=== PATIENT | female | born 1990 | race Caucasian/White ===

== ENCOUNTER 2019-03-18 21:10 | Emergency (ER) | payer SELFPAY ==
[~2019-03-18] VITALS: Ht 180.3 cm; Wt 84.0 kg
[2019-03-18 21:40] VITALS: BP 135/90
--- NOTE | 2019-03-18 22:06 | PHYS DOC ---
Past Medical History Past Medical History: Other Additional Past Medical Histor: factor 5 (LIZZ BERNARDO APRN) Past Surgical History: Other Additional Past Surgical Histo: knee, cyst removal (LIZZ BERNARDO APRN) Smoking Status: Current Every Day Smoker Alcohol Use: None (LIZZ BERNARDO APRN) Attending Signature I have participated in the care of this patient and I have reviewed and agree with all pertinent clinical information above including history, exam, and recommendations. (GIFTY WILLIAMSON MD) Adult General Chief Complaint Chief Complaint: HEADACHE HPI HPI Patient is a 29 year old female who presents with head trauma that occurred around 6 PM. The patient states she has been having associated symptoms of light sensitivity, noise sensitivity, nausea, and vomiting. The patient had a negative loc. The patient rates her pain as 10/10 in severity and has not had medication prior to arrival. Complete ROS were reviewed and found to be within normal limits, except as documented in the HPI (LIZZ BERNARDO APRN) Physical Exam Physical Exam Constitutional: Well developed, well nourished, no acute distress, non-toxic appearance. [] HENT: Normocephalic, atraumatic, bilateral external ears normal, oropharynx moist, no oral exudates, nose normal. [] Eyes: PERRLA, EOMI, conjunctiva normal, no discharge. [] Back: No tenderness, no CVA tenderness. [] Extremities: No tenderness, no cyanosis, no clubbing, ROM intact, no edema. [] Neurologic: Alert and oriented X 3, normal motor function, normal sensory function, no focal deficits noted. [] Psychologic: Affect normal, judgement normal, mood normal. [] (LIZZ BERNARDO APRN) Current Patient Data Vital Signs Vital Signs Date Time Temp Pulse Resp B/P (MAP) Pulse Ox O2 Delivery O2 Flow Rate FiO2 03/18/19 21:40 97.8 94 16 135/90 (105) 99 Room Air 97.8 (GFITY WILLIAMSON MD) EKG EKG [] (LIZZ BERNARDO APRN) Radiology/Procedures Radiology/Procedures [] (LIZZ BERNARDO APRN) Course & Med Decision Making Course & Med Decision Making Pertinent Labs and Imaging studies reviewed. (See chart for details) The patient appears to have a concussion. Discussed concussion treatment and precautions. A medical screening exam was performed on this patient and the patient does not appear to be having a medical emergency. Her symptoms are not of sufficient severity and within reasonable medical probability it is unlikely the absence of immediate medical attention would result in placing the health of the individual (or, with respect to a woman, the health of the woman or her unborn child) in serious jeopardy, serious impairment to bodily functions, or serious dysfunction of any bodily organ or part. If , the patient is not in labor (LIZZ BERNARDO APRN) Dragon Disclaimer Dragon Disclaimer This electronic medical record was generated, in whole or in part, using a voice recognition dictation system. (LIZZ BERNARDO APRN) Departure Departure Impression: Primary Impression: Concussion Additional Impression: Encounter for medical screening examination Disposition: HOME, SELF-CARE Condition: STABLE Referrals: NO PCP (PCP) Patient Instructions: Concussion and Brain Injury Additional Instructions: Thank you for visiting [facility]. We appreciate you trusting us with your care. If any additional problems come up don't hesitate to return to visit us. Please follow up with your primary care provider so they can plan additional care if needed and know about the problem that you had. If symptoms worsen come back to the Emergency Department. Any concerning symptoms that start such as chest pain, shortness of air, weakness or numbness on one side of the body, running high fevers or any other concerning symptoms return to the ER. PATIENT TAKE-HOME INSTRUCTIONS ([facility]) INFORMATION FOR ADULTS You have been examined for a head injury and possible concussion. Take time off from work or school for days or until you and your health child care provider think you are able to return to your usual routine. Further instructions from your health child care provider: When should I return to the hospital emergency department? Sometimes serious problems develop after a head injury. Return immediately to the emergency department if you experience any of the following symptoms: ? Repeated vomiting ? Headache that gets worse and does not go away ? Loss of consciousness or unable to stay awake during times you would normally be awake ? Getting more confused, restless, or agitated ? Convulsions or seizures ? Difficulty walking or difficulty with balance ? Weakness or numbness ? Difficulty with your vision Most of all, if you have any symptom that concerns you, your family members, or friends, dont delay, see a doctor right away. Q&A. Some questions and answers about brain injuries Q. What is a concussion? A. A concussion is a type of traumatic brain injury (TBI). It is caused by a bump, blow, or jolt to the head or body that causes the head and brain to move quickly back and forth. Some of the ways you can get a concussion are when you hit your head during a fall, car crash, or sports injury. Health family day care provider sometime refer to concussions as mild? brain injuries because they are usually not life-threatening. Even so, their effects can be serious. Q. What should I expect once I'm home from the hospital? A. Most people with a concussion recover quickly and fully. During recovery, it is important to know that many people have a range of symptoms. Some symptoms may appear right away, while others may not be noticed for hours or even days after the injury. You may not realize you have problems until you try to do your usual activities again. Below is a list of some of the symptoms you may have: Thinking/ Remembering Difficulty thinking clearly Feeling slowed down Difficulty concentrating Difficulty remembering new information Physical Headache Nausea or vomiting (early on) Sensitivity to noise or light Feeling tired, having no energy Fuzzy or blurry vision Dizziness Balance problems Emotional/ Mood Irritability Sadness More emotional Nervousness or anxiety Sleep Sleeping more than usual Sleeping less than usual Trouble falling asleep These postconcussive? symptoms can be part of the normal healing process and are generally not signs of permanent damage or serious health problems. Most symptoms go away over time without any treatment. It is easy to become upset or afraid if you dont know what to expect or if you are having problems. Keep talking with your doctor and others about how you are feeling. Tell your health child care provider if you do not think you are getting better. Q. What can I do to feel better? A. Getting plenty of rest and sleep helps the brain to heal. Do not try to do too much too fast. As you start to feel better, you can slowly and gradually return to your usual routine. Here are some other tips to help you get better: Avoid activities that are physically demanding (e.g., sports, heavy housecleaning, exercising) or require a lot of thinking or concentration (e.g., working on the computer, playing video games). Ignoring your symptoms and toughing it out? often makes symptoms worse. Ask your health child care provider when you can safely drive a car, ride a bike, or operate heavy equipment. Do not drink alcohol. Q. What if I don't feel better after a week? A. If you do not feel back to normal within one week, see a health child care provider who has experience treating brain injuries. Q. Should I tell my work about my injury? A. If your injury was work-related, make sure you report it right away to your employer and your workers compensation office. Q. When can I return to sports and recreational activities? A. Do not return to sports and recreational activities before talking to your health child care provider. A repeat concussion that occurs before the brain has fully healed can be very dangerous and may slow your recovery or increase the chance for long-term problems. Q. How can I avoid a concussion in the future? A. There are many ways to minimize the risk of a concussion and other injuries: Wear a seat belt and use a safety seat for children. Wear a helmet that fits properly when biking, riding a motorcycle, skating, skiing, horseback riding, or playing contact sports. Prevent falls in the home by: Using grab bars in the bathroom and handrails by stairs. Placing non-slip mats in the bathtub and on floors. Removing trip hazards in the house. Improving lighting. Installing safety bedolla by stairs and safety guards by windows to protect young children in your home. For more information about concussion, please visit www.cdc.gov/Concussion. This fact sheet is part of the Centers for Disease Control and Preventions (CDC) Heads Up? series of publications and is based on the 2008 Clinical Policy: Neuroimaging and Decisionmaking in Adult Mild Traumatic Brain Injury in the Acute Setting, jointly produced by CDC and ACEP Problem Qualifiers Primary Impression: Concussion Encounter type: initial encounter Loss of consciousness presence/duration: without LOC Qualified Codes: S06.0X0A - Concussion without loss of consciousness, initial encounter LIZZ BERNARDO APRN Mar 18, 2019 22:06 GIFTY WILLIAMSON MD Mar 18, 2019 22:14
== END 2019-03-18 22:09 | disposition home or self-care (01) ==
LOC: ER 21:10
DX: S06.0X0A Concussion without loss of consciousness, initial encounter (principal); R11.2 Nausea with vomiting, unspecified; H53.71 Glare sensitivity; F17.200 Nicotine dependence, unspecified, uncomplicated; Z98.890 Other specified postprocedural states; X58.XXXA Exposure to other specified factors, initial encounter; Y93.89 Activity, other specified; Y92.89 Other specified places as the place of occurrence of the external cause; Y99.8 Other external cause status
CPT/HCPCS: 99281

== ENCOUNTER 2020-03-10 12:28 | Emergency (ER) | payer SELFPAY ==
[~2020-03-10] VITALS: Ht 180.3 cm; Wt 78.6 kg
[2020-03-10] MEDS ORDERED: diphenhydrAMINE 50 MG/ML VIAL IVP ONE (13:15)
[2020-03-10] MEDS ORDERED: KETOROLAC 15 MG/ML VIAL. IVP ONE (13:15)
[2020-03-10] MEDS ORDERED: DEXAMETHASONE SOD PHOS 20 MG/5 ML VIAL. IV ONE (13:15)
[2020-03-10] MEDS ORDERED: PROCHLORPERAZINE 10 MG/2 ML VIAL. IV ONE (13:15)
[2020-03-10 13:39] LABS: BASO # 0.1 x10^3/uL (0.0-0.2); BASO % 1 % (0-3); EOS % 0 % (0-3); HEMATOCRIT 39.9 % (36.0-47.0); HEMOGLOBIN 13.6 g/dL (12.0-15.5); LYMPH # 2.3 x10^3/uL (1.0-4.8); LYMPH % 31 % (24-48); MEAN CORPUSCULAR HEMOGLOBIN 31 pg (25-35); MEAN CORPUSCULAR HGB CONC 34 g/dL (31-37); MEAN CORPUSCULAR VOLUME 91 fL (79-100); MONO # 0.6 x10^3/uL (0.0-1.1); MONO % 7 % (0-9); NEUT # 4.5 x10^3/uL (1.8-7.7); NEUT % 61 % (31-73); PLATELET COUNT 315 x10^3/uL (140-400); RED BLOOD COUNT 4.36 x10^6/uL (3.50-5.40); RED CELL DISTRIBUTION WIDTH 13.2 % (11.5-14.5); WHITE BLOOD COUNT 7.5 x10^3/uL (4.0-11.0)
[2020-03-10 13:39] LABS: BILIRUBIN,URINE NEGATIVE (NEG); CLARITY,URINE CLOUDY; COLOR,URINE YELLOW; NITRITE,URINE NEGATIVE (NEG); PROTEIN,URINE NEGATIVE (NEG-TRACE); UROBILINOGEN,URINE 0.2 mg/dL (0.2 mg/dL)
[2020-03-10 13:46] LABS: BARBITURATES NEG (NEG); BENZODIAZEPINES POS (NEG); CANNABINOIDS NEG (NEG); COCAINE POS (NEG); METHADONE NEG (NEG); OPIATES POS (NEG); PHENCYCLIDINE NEG (NEG)
[2020-03-10 13:48] LABS: CALCIUM 9.1 mg/dL (8.5-10.1); CREATININE 0.8 mg/dL (0.6-1.0); GFR 84.8; POTASSIUM 4.2 mmol/L (3.5-5.1)
[2020-03-10 13:50] LABS: AMPHETAMINE/METHAMPHETAMINE NEG (NEG)
[2020-03-10 13:51] LABS: BACTERIA,URINE FEW /HPF (0-FEW); RBC,URINE OCC /HPF (0-2); WBC,URINE 20-40 /HPF (0-4)
[2020-03-10 13:52] LABS: TRICHOMONAS,URINE PRESENT
[2020-03-10 13:53] LABS: ALBUMIN 3.8 g/dL (3.4-5.0); ALBUMIN/GLOBULIN RATIO 0.9 (1.0-1.7); TOTAL BILIRUBIN 0.1 mg/dL (0.2-1.0); TOTAL PROTEIN 7.9 g/dL (6.4-8.2)
[2020-03-10] MEDS ORDERED: HALOPERIDOL LACTATE 5 MG/ML VIAL. IVP ONE (14:15)
[2020-03-10 14:38] VITALS: BP 125/77
[2020-03-10] MEDS ORDERED: DIPH25TA24 PO (15:34)
[2020-03-10] MEDS ORDERED: METO5TAB55 PO (15:34)
--- NOTE | 2020-03-10 15:42 | PHYS DOC ---
Past Medical History Past Medical History: Anxiety, Bipolar, Depression, Endometriosis, Other Additional Past Medical Histor: factor 5 Past Surgical History: Other Additional Past Surgical Histo: knee, cyst removal Smoking Status: Current Every Day Smoker Alcohol Use: None Social History Narrative: LAST USED 1 WEEK AGO General Adult EDM: Chief Complaint: HEADACHE HPI: HPI: 30-year-old female past medical history significant for anxiety and bipolar dep ression, presents to the ED with complaints of gradual onset frontal headache that has been intermittent, waxing waning for the past 5 days, now involves her posterior occiput. No relief with Tylenol, Sudafed and Excedrin extra strength. Patient does report some associated nasal congestion. Reports she smokes tobacco and he tried cocaine 2 weeks ago. Denies any history of head or neck trauma. No associated neurologic deficits, blurry vision, neck pain or fever. No history of IV drug use. States she feels as if her anxiety is not under control and that is why her heart rate is fast. States she was recently prescribed Valium for her anxiety by [facility] in [place] -prior to this had taken lorazepam as needed (not daily). LMP 2014 - since then on Depo-Provera injections every 3 months. Denies any family history of aneurysms or intracranial hemorrhage. Patient not on any anticoagulants. Does report she had a mild nosebleed a few days ago that resolved with pressure. Review of Systems: Review of Systems: Constitutional: Denies fever or chills. [] Eyes: Denies change in visual acuity. [] HENT: Denies nasal congestion or sore throat. [] Respiratory: Denies cough or shortness of breath. [] Cardiovascular: Denies chest pain or edema. [] GI: Denies abdominal pain, nausea, vomiting, bloody stools or diarrhea. [] : Denies dysuria or hematuria Musculoskeletal: Denies back pain or joint pain. [] Integument: Denies rash or diaphoresis Neurologic: Denies neck stiffness, focal weakness or sensory changes. [] Endocrine: Denies polyuria or polydipsia. [] Lymphatic: Denies swollen glands. [] Psychiatric: Denies depression or anxiety. [] Heart Score: Risk Factors: Risk Factors: DM, Current or recent (<one month) smoker, HTN, HLP, family history of CAD, obesity. Risk Scores: Score 0 - 3: 2.5% MACE over next 6 weeks - Discharge Home Score 4 - 6: 20.3% MACE over next 6 weeks - Admit for Clinical Observation Score 7 - 10: 72.7% MACE over next 6 weeks - Early Invasive Strategies Current Medications: Current Medications Medications (Trade) Dose Ordered Sig/Lianet Start Time Stop Time Status Last Admin Dose Admin Dexamethasone Sodium Phosphate (Decadron) 10 mg 1X ONCE 03/10/20 13:15 03/10/20 13:16 DC 03/10/20 13:30 10 MG Diphenhydramine HCl (Benadryl) 50 mg 1X ONCE 03/10/20 13:15 03/10/20 13:16 DC 03/10/20 13:33 50 MG Haloperidol Lactate (Haldol Inj) 5 mg 1X ONCE 03/10/20 14:15 03/10/20 14:16 DC 03/10/20 14:22 5 MG Ketorolac Tromethamine (Toradol 15mg Vial) 15 mg 1X ONCE 03/10/20 13:15 03/10/20 13:16 DC 03/10/20 13:39 15 MG Prochlorperazine Edisylate (Compazine) 10 mg 1X ONCE 03/10/20 13:15 03/10/20 13:16 DC 03/10/20 13:36 10 MG Allergies: Allergies: Allergies Coded Allergies Type Severity Reaction Last Updated Verified tramadol Allergy Intermediate hives 03/10/20 Yes Physical Exam: PE: Constitutional: Well developed, well nourished, no acute distress, non-toxic appearance. [] HENT: Normocephalic, atraumatic, bilateral external ears normal, Eyes: PERRLA, EOMI, conjunctiva normal, no discharge, Neck: Normal range of motion, no tenderness, supple, no nuchal rigidity or meningismus Cardiovascular: S1/2 present, regular rhythm Lungs & Thorax: Speaking in full sentences, bilateral equal chest rise, no tachypnea or increased work of breathing Abdomen: soft, no tenderness, Skin: Warm, dry, no erythema, no rash. [] Back: No tenderness, no CVA tenderness. [] Extremities: No tenderness, no cyanosis, no clubbing, ROM intact, no edema. [] Neurologic: Alert and oriented X 3, normal motor function, normal sensory function, no focal deficits noted, cn2-12 intact, FNF/TIERA wnl Psychologic: Affect normal, judgement normal, mood normal. [] Current Patient Data: Labs: Laboratory Tests Test 03/10/20 12:46 03/10/20 13:00 03/10/20 13:20 POC Urine HCG, Qualitative Hcg negative (Negative) Urine Collection Type Unknown Urine Color Yellow Urine Clarity Cloudy Urine pH 6.0 (<5.0-8.0) Urine Specific [place] 1.020 (1.000-1.030) Urine Protein Negative mg/dL (NEG-TRACE) Urine Glucose (UA) Negative mg/dL (NEG) Urine Ketones (Stick) Negative mg/dL (NEG) Urine Blood Negative (NEG) Urine Nitrite Negative (NEG) Urine Bilirubin Negative (NEG) Urine Urobilinogen Dipstick 0.2 mg/dL (0.2 mg/dL) Urine Leukocyte Esterase Large (NEG) Urine RBC Occ /HPF (0-2) Urine WBC 20-40 /HPF (0-4) Urine Squamous Epithelial Cells Many /LPF Urine Bacteria Few /HPF (0-FEW) Urine Mucus Marked /LPF Urine Trichomonas Present Urine Opiates Screen Pos (NEG) Urine Methadone Screen Neg (NEG) Urine Barbiturates Neg (NEG) Urine Phencyclidine Screen Neg (NEG) Urine Amphetamine/Methamphetamine Neg (NEG) Urine Benzodiazepines Screen Pos (NEG) Urine Cocaine Screen Pos (NEG) Urine Cannabinoids Screen Neg (NEG) Urine Ethyl Alcohol Neg (NEG) White Blood Count 7.5 x10^3/uL (4.0-11.0) Red Blood Count 4.36 x10^6/uL (3.50-5.40) Hemoglobin 13.6 g/dL (12.0-15.5) Hematocrit 39.9 % (36.0-47.0) Mean Corpuscular Volume 91 fL (79-100) Mean Corpuscular Hemoglobin 31 pg (25-35) Mean Corpuscular Hemoglobin Concent 34 g/dL (31-37) Red Cell Distribution Width 13.2 % (11.5-14.5) Platelet Count 315 x10^3/uL (140-400) Neutrophils (%) (Auto) 61 % (31-73) Lymphocytes (%) (Auto) 31 % (24-48) Monocytes (%) (Auto) 7 % (0-9) Eosinophils (%) (Auto) 0 % (0-3) Basophils (%) (Auto) 1 % (0-3) Neutrophils # (Auto) 4.5 x10^3/uL (1.8-7.7) Lymphocytes # (Auto) 2.3 x10^3/uL (1.0-4.8) Monocytes # (Auto) 0.6 x10^3/uL (0.0-1.1) Eosinophils # (Auto) 0.0 x10^3/uL (0.0-0.7) Basophils # (Auto) 0.1 x10^3/uL (0.0-0.2) Sodium Level 141 mmol/L (136-145) Potassium Level 4.2 mmol/L (3.5-5.1) Chloride Level 104 mmol/L (98-107) Carbon Dioxide Level 29 mmol/L (21-32) Anion Gap 8 (6-14) Blood Urea Nitrogen 13 mg/dL (7-20) Creatinine 0.8 mg/dL (0.6-1.0) Estimated GFR (Cockcroft-Gault) 84.8 BUN/Creatinine Ratio 16 (6-20) Glucose Level 93 mg/dL (70-99) Calcium Level 9.1 mg/dL (8.5-10.1) Total Bilirubin 0.1 mg/dL (0.2-1.0) L Aspartate Amino Transferase (AST) 8 U/L (15-37) L Alanine Aminotransferase (ALT) 16 U/L (14-59) Alkaline Phosphatase 82 U/L (46-116) Total Protein 7.9 g/dL (6.4-8.2) Albumin 3.8 g/dL (3.4-5.0) Albumin/Globulin Ratio 0.9 (1.0-1.7) L Laboratory Tests 03/10/20 13:20 Laboratory Tests 03/10/20 13:20 Vital Signs: Vital Signs Date Time Temp Pulse Resp B/P (MAP) Pulse Ox O2 Delivery O2 Flow Rate FiO2 03/10/20 14:38 100 99 03/10/20 12:36 98.0 22 140/93 (109) Room Air 98.0 EKG: EKG: [] Radiology/Procedures: Radiology/Procedures: [] Course & Med Decision Making: Course & Med Decision Making Pertinent Labs and Imaging studies reviewed. (See chart for details) On re-evaluation pt states headache is almost gone and is requesting to be discharged. Pt educated on STI/trich (asks "what's that," when informed she has trichomonas). Patient will self swab for PCR testing for GC. Was given azithro po in the ED to cover for chlamydia. Will for the health department for further blood-borne STI testing. Will prescribe Keflex and Flagyl to cover UTI, gonorrhea and trichomonas. Will discharge home with strict ED return precautions were given for worsening headache, neurologic deficits, blurry vision, fever or neck pain. Encouraged urgent outpatient follow-up with PMD and neurology as needed. Life-threatening processes were considered but are low suspicion at this time, given history, physical exam and ED workup. Pt was educated on all prescription medications and adverse effects. All patient's questions were answered and pt was stable at time of discharge. Life/limb-threatening differential includes but is not limited to, meningitis, encephalitis, intracranial hemorrhage, obstructive hydrocephaly, CVA, carbon monoxide poisoning, cerebral or cavernous venous thrombosis, hypertensive emergency, preeclampsia, giant cell arteritis, glaucoma, carotid or vertebral artery dissection, superior vena cava syndrome, infection, optic neuritis, or space-occupying lesions. I spoken with the patient and her caregivers. I explained the patient's condition, diagnoses and treatment plan based on the information available to me at this time. I have answered the patient and her caregiver's questions and addressed any concerns. The patient and her caregivers have a good understanding of patient's diagnosis, condition and treatment plan as can be expected at this point. Vital signs have been stable. Patient's condition is stable and appropriate for discharge from the emergency department. Patient will pursue further outpatient evaluation with primary care physician or other designated or consulting physician as outlined in the discharge instructions. The patient and/or caregivers are agreeable to this plan of care and follow-up instructions have been explained in detail. The patient and/or caregivers have received these instructions in written form and have expressed an understanding of the discharge instructions. The patient and/or caregivers are aware that any significant change of condition or worsening of symptoms should prompt immediate return to this or the closest emergency department or call to 911. Lawrence Disclaimer: Lawrence Disclaimer: This electronic medical record was generated, in whole or in part, using a voice recognition dictation system. Departure Departure Impression: Primary Impression: Headache Additional Impressions: Vaginal trichomoniasis UTI (urinary tract infection) Polysubstance abuse Disposition: 01 DC HOME SELF CARE/HOMELESS Condition: STABLE Referrals: NO PCP (PCP) FOLLOW UP WITH FAMILY MEDICINE: Family Medicine Address: [address] [place] [address] Patient Instructions: General Headache Without Cause, Migraine Headache, Trichomoniasis Additional Instructions: FOLLOW UP WITH NEUROLOGY: [facility] Neurology Address: [address], [address] [place] [address] EMERGENCY DEPARTMENT GENERAL DISCHARGE INSTRUCTIONS Thank you for coming to [facility] Emergency Department (ED) today and trusting us with you care. We trust that you had a positive experience in our Emergency Department. If you wish to speak to the department management, you may call the Director at [phone]. YOUR FOLLOW UP INSTRUCTIONS ARE FOLLOWS: 1. Do you have a private Doctor? If you do not have a private doctor, please ask for a resource list of physicians or clinics that may be able to assist you with follow up care. 2. The Emergency Physicain has interpreted your x-rays. The X-Ray specialist will also review them. If there is a change in the findings, you will be notified in 48 hours when at all possible. 3. A lab test or culture has been done, your results will be reviewed and you will be notified if you need a change in treatment. ADDITIONAL INSTRUCTIONS AND INFORMATION: 1. Your care today has been supervised by a physician who is specially trained in emergency care. Many problems require more than one evaluation for a complete diagnosis and treatment. We recommend that you schedule your follow up appointment as recommended to ensure complete treatment of you illness or injury. If you are unable to obtain follow up care and continue to have a problem, or if your condition worsens, we recommend that you return to the ED. 2. We are not able to safely determine your condition over the phone nor are we able to give sound medical advice over the phone. For these safety reasons, if you call for medical advice we will ask you to come to the ED for further evaluation. 3. If you have any questions regarding these discharge instructions please call the ED at [phone]. SAFETY INFORMATION: In the interest of safety, wellness, and injury prevention; we encourage you to wear your sealbelt, if you smoke; quite smoking, and we encourage family to use a protective helmet for bicycling and other sporting events that present an increased risk for head injury. IF YOUR SYMPTOMS WORSEN OR NEW SYMPTOMS DEVELOP, OR YOU HAVE CONCERNS ABOUT YOUR CONDITION; OR IF YOUR CONDITION WORSENS WHILE YOU ARE WAITING FOR YOUR FOLLOW UP APPOINTMENT; EITHER CONTACT YOUR PRIMARY CARE DOCTOR, THE PHYSICIAN WHOSE NAME AND NUMBER YOU WERE GIVEN, OR RETURN TO THE ED IMMEDIATELY. Scripts Metronidazole (FLAGYL) 500 Mg Tablet 1 TAB PO BID for 7 Days, #14 TAB Prov: NAZARIO DOMINGUEZ DO 03/10/20 Cephalexin (CEPHALEXIN) 500 Mg Capsule 2 CAP PO QID for 7 Days, #56 CAP Prov: NAZARIO DOMINGUEZ DO 03/10/20 Metoclopramide Hcl (REGLAN) 5 Mg Tablet 1-2 TAB PO QID, #20 TAB 0 Refills Prov: NAZARIO DOMINGUEZ DO 03/10/20 Diphenhydramine Hcl (DIPHENHYDRAMINE HCL) 25 Mg Tablet 1-2 TAB PO Q6-8HRS PRN for HEADACHE MDD 100mg for 30 Days, #20 TAB 0 Refills Prov: NAZARIO DOMINGUEZ DO 03/10/20 NAZARIO DOMINGUEZ DO Mar 10, 2020 15:42
[2020-03-10] MEDS ORDERED: METR500T PO (15:57)
[2020-03-10] MEDS ORDERED: CEPH500C PO (15:57)
[2020-03-10] MEDS ORDERED: AZITHROMYCIN 250 MG TABLET. PO ONE (16:00)
[2020-03-11 19:09] LABS: GC PROBE Negative (Negative)
== END 2020-03-10 16:13 | disposition home or self-care (01) ==
LOC: ER 12:28
DX: A59.01 Trichomonal vulvovaginitis (principal); N39.0 Urinary tract infection, site not specified; F19.10 Other psychoactive substance abuse, uncomplicated; R51.9 Headache, unspecified; F41.9 Anxiety disorder, unspecified; F32.9 Major depressive disorder, single episode, unspecified; F17.200 Nicotine dependence, unspecified, uncomplicated; Z98.890 Other specified postprocedural states; Z88.8 Allergy status to other drugs, medicaments and biological substances
CPT/HCPCS: 36415; 80053; 80307; 81001; 81025; 85025; 87086; 87491; 87591; 96374; 96375; 99284; J0780; J1100; J1200; J1630; J1885

== ENCOUNTER 2020-07-24 12:28 | Emergency (ER) | payer MEDICAID ==
[~2020-07-24] VITALS: Ht 180.3 cm; Wt 90.0 kg
[~2020-07-24 12:28] MED LIST: CEPH500C PO; DIPH25TA24 PO; METO5TAB55 PO; METR500T PO
[2020-07-24 12:35] VITALS: BP 121/65
[2020-07-24] MEDS ORDERED: DIPH,PERTUSS(ACELL),TET VAC/PF 0.5 ML SYRINGE. VAX IM ONE (12:45)
[2020-07-24] MEDS ORDERED: ONDANSETRON ODT 4 MG TAB.RAPDIS. PO ONE (12:45)
[2020-07-24] MEDS ORDERED: LIDOCAINE 2% Multi-Dose 20 ML VIAL. IJ ONE (12:45)
--- NOTE | 2020-07-24 12:51 | ED.ADGEN ---
Past Medical History Past Medical History: Anxiety, Bipolar, Depression, Endometriosis, Other Additional Past Medical Histor: factor 5 Past Surgical History: Other Additional Past Surgical Histo: knee, cyst removal Smoking Status: Current Every Day Smoker Alcohol Use: None General Adult EDM: Chief Complaint: LACERATION/AVULSION HPI: HPI: Patient is a 30 year old female who presents emergency department with comp laints of laceration and pain to the bottom of her left foot. Patient states that she was working in her garden when she stepped on a sharp rock and cut her soda. Patient is unsure when her last tetanus shot was. She denies any numbness, tingling, or decreased sensation of the affected extremity. Patient currently rates the pain 8 out of 10 on the pain scale, the pain increases to a 10 out of 10 with any ambulating barajas, palpation, or weightbearing. Review of Systems: Review of Systems: Complete ROS is negative unless otherwise noted in HPI. Current Medications: Current Medications Medications (Trade) Dose Ordered Sig/Lianet Start Time Stop Time Status Last Admin Dose Admin Acetaminophen/ Hydrocodone Bitart (Lortab 5/325) 1 tab 1X ONCE 07/24/20 13:15 07/24/20 13:16 DC 07/24/20 12:55 1 TAB Diphtheria/ Tetanus/Acell Pertussis (ADACEL TDap SYRINGE) 0.5 ml ONCE ONCE 07/24/20 12:45 07/24/20 12:46 DC 07/24/20 13:18 0.5 ML Lidocaine HCl (Lidocaine 2% 20ml Vial) 20 ml 1X ONCE 07/24/20 12:45 07/24/20 12:46 DC 07/24/20 12:54 20 ML Ondansetron HCl (Zofran Odt) 4 mg 1X ONCE 07/24/20 12:45 07/24/20 12:46 DC 07/24/20 12:54 4 MG Allergies: Allergies: Allergies Coded Allergies Type Severity Reaction Last Updated Verified tramadol Allergy Intermediate hives 03/10/20 Yes Physical Exam: PE: See Above Constitutional: Well developed, well nourished, no acute distress, non-toxic appearance. [] HENT: Normocephalic, atraumatic, bilateral external ears normal, nose normal. [] Eyes: PERRLA, EOMI, conjunctiva normal, no discharge. [] Neck: Normal range of motion, no stridor. [] Cardiovascular:Heart rate regular rhythm Lungs & Thorax: Respirations even and unlabored, no retractions, no respiratory distress Skin: Warm, dry, no erythema, no rash; 2 cm laceration to the plantar surface of the left midfoot, no visible foreign body, bleeding controlled [] Extremities: No cyanosis, ROM intact, no edema. [] Neurologic: Alert and oriented X 3, normal motor, normal sensory, no focal deficits noted. [] Psychologic: Affect normal, judgement normal, mood normal. [] Current Patient Data: Vital Signs: Vital Signs Date Time Temp Pulse Resp B/P (MAP) Pulse Ox O2 Delivery O2 Flow Rate FiO2 07/24/20 12:35 98.7 96 16 121/65 (83) 97 Room Air 98.7 EKG: EKG: [] Heart Score: C/O Chest Pain: No Risk Scores: Score 0 - 3: 2.5% MACE over next 6 weeks - Discharge Home Score 4 - 6: 20.3% MACE over next 6 weeks - Admit for Clinical Observation Score 7 - 10: 72.7% MACE over next 6 weeks - Early Invasive Strategies Radiology/Procedures: Radiology/Procedures: PROCEDURE: FOOT LEFT 3V XR FOOT_LEFT 3 VIEWS 07/24/2020 12:51 PM INDICATION: Stepped on glass . COMPARISON: None available. TECHNIQUE: 3 views of the left foot are provided. FINDINGS/ IMPRESSION: There is no acute fracture or dislocation. Joint spaces are maintained. Bone mineralization is within normal limits. Regional soft tissues are within normal limits. There is no soft tissue gas or osseous erosion. No radiopaque foreign body. Electronically signed by: Zofia James MD (07/24/2020 1:09 PM) [facility] by me: Anesthesia: 2% lidocaine locally Location: Plantar surface of left foot Tendon/Joint/Nerves: No injury Foreign body: None detected after copious irrigation and exploration with NS and chlorhexidine Technique: 2 simple Interrupted Sutures with with 3-0 Ethilon Complexity: No subcutaneous sutures/mucosal repair/edge excision Post Closure Length: 2 cm Patient's bleeding was easily controlled in the department and there is no indication of anemia. No evidence of compartment syndrome, neurologic injury, vascular injury, open joint, tendon laceration, or foreign body. Patient is appropriate for outpatient follow up. [] [] Course & Med Decision Making: Course & Med Decision Making Pertinent Labs and Imaging studies reviewed. (See chart for details) [] Lawrence Disclaimer: Lawrence Disclaimer: This electronic medical record was generated, in whole or in part, using a voice recognition dictation system. Departure Departure Impression: Primary Impression: Laceration of left foot excluding toes without complication Additional Impression: Need for Tdap vaccination Disposition: HOME / SELF CARE / HOMELESS Condition: STABLE Referrals: NO PCP (PCP) Patient Instructions: Laceration Care, Adult, [id number], VIS, Tetanus, Diphtheria (Td); Tetanus, Diphtheria, Pertussis (Tdap) - [facility] Additional Instructions: Fill the prescription and use it as directed. Keep the affected area clean and dry. You may take Tylenol or ibuprofen as needed for pain. Leave the dressing that was placed today on for 24 hours then change the dressing twice a day and apply antibiotic ointment to the area. Follow-up with your primary care doctor, or return to the emergency room in 10-14 days to have the sutures removed, sooner if you develop signs of infection including: redness, warmth, drainage, or a fever. Scripts Cephalexin (CEPHALEXIN) 500 Mg Capsule 1 CAP PO TID for 7 Days, #21 CAP 0 Refills Prov: RYAN D[employer]ONT [employer] 07/24/20 Problem Qualifiers Primary Impression: Laceration of left foot excluding toes without complication Encounter type: initial encounter Qualified Codes: S91.312A - Laceration without foreign body, left foot, initial encounter RYAN D[employer]ONT [employer] MANA[employer] Jul 24, 2020 12:50
--- NOTE | 2020-07-24 13:12 | RAD ---
XR FOOT_LEFT 3 VIEWS 07/24/2020 12:51 PM INDICATION: Stepped on glass . COMPARISON: None available. TECHNIQUE: 3 views of the left foot are provided. FINDINGS/ IMPRESSION: There is no acute fracture or dislocation. Joint spaces are maintained. Bone mineralization is within normal limits. Regional soft tissues are within normal limits. There is no soft tissue gas or osseou s erosion. No radiopaque foreign body. Electronically signed by: Zofia James MD (07/24/2020 1:09 PM) [facility]
[2020-07-24] MEDS ORDERED: HYDROcodone/APAP 5/325MG 1 TAB TABLET PO ONE (13:15)
[2020-07-24] MEDS ORDERED: CEPH500C PO (14:13)
== END 2020-07-24 14:23 | disposition home or self-care (01) ==
LOC: ER 12:28
DX: S91.312A Laceration without foreign body, left foot, initial encounter (principal); F17.200 Nicotine dependence, unspecified, uncomplicated; Z88.6 Allergy status to analgesic agent; W22.8XXA Striking against or struck by other objects, initial encounter; Y93.89 Activity, other specified; Y92.89 Other specified places as the place of occurrence of the external cause; Y99.8 Other external cause status
CPT/HCPCS: 12001; 73630; 90471; 90715; 99283

== ENCOUNTER 2020-11-06 19:43 | Emergency (ER) | payer MEDICAID ==
[~2020-11-06] VITALS: Ht 180.3 cm; Wt 90.0 kg
[2020-11-06 19:55] VITALS: BP 129/91
[2020-11-06] MEDS ORDERED: ONDANSETRON ODT 4 MG TAB.RAPDIS. PO ONE (22:00)
[2020-11-06] MEDS ORDERED: ONDA4TAB12 PO (22:00)
[2020-11-06] MEDS ORDERED: HYDROcodone/APAP 10/325 1 TAB TABLET PO ONE (22:00)
--- NOTE | 2020-11-06 22:00 | PHYS DOC ---
Past Medical History Past Medical History: Anxiety, Bipolar, Depression, Endometriosis, Other Additional Past Medical Histor: factor 5 (LIZZ HAGAN APRN) Past Surgical History: Other Additional Past Surgical Histo: knee, cyst removal (LIZZ HAGAN APRN) Smoking Status: Current Every Day Smoker Alcohol Use: None (LIZZ HAGAN APRN) General Adult EDM: Chief Complaint: HEADACHE HPI: HPI: Patient is a 30-year-old female who presents emergency department complaining of migraine headache for the past 2 weeks. Patient reports onset similar to all her other migraines, denies thunderclap onset. Reports this headache a constant 7 out of 10. States her normal migraine medications did not seem to be working. Patient is requesting stronger pain medication to get over the edge of this migraine. Patient complains of nausea. Denies vomiting. Reports her last menstrual cycle 1 week ago with normal duration of flow. Patient denies visual disturbances, denies homicidal suicidal ideations. Denies other physical complaints or physical concerns. (LIZZ HAGAN APRN) Review of Systems: Review of Systems: 14 body systems of review of systems have been reviewed. See HPI for pertinent positives and negative responses, otherwise all other systems are negative, nonpertinent or noncontributory. Constitutional: Negative except as outlined in HPI above. Skin: Negative except as outlined in HPI above. Eyes: Negative except as outlined in HPI above. HENT: Negative except as outlined in HPI above. Respiratory: Negative except as outlined in HPI above. Cardiovascular: Negative except as outlined in HPI above. GI: Negative except as outlined in HPI above. : Negative except as outlined in HPI above. Musculoskeletal: Negative except as outlined in HPI above. Integument: Negative except as outlined in HPI above. Neurologic: Negative except as outlined in HPI above. Endocrine: Negative except as outlined in HPI above. Lymphatic: Negative except as outlined in HPI above. Psychiatric: Negative except as outlined in HPI above. (LIZZ HAGAN APRN) Heart Score: C/O Chest Pain: No Risk Factors: Risk Factors: DM, Current or recent (<one month) smoker, HTN, HLP, family history of CAD, obesity. Risk Scores: Score 0 - 3: 2.5% MACE over next 6 weeks - Discharge Home Score 4 - 6: 20.3% MACE over next 6 weeks - Admit for Clinical Observation Score 7 - 10: 72.7% MACE over next 6 weeks - Early Invasive Strategies (LIZZ HAGAN APRN) Allergies: Allergies: Allergies Coded Allergies Type Severity Reaction Last Updated Verified tramadol Allergy Intermediate hives 03/10/20 Yes (LIZZ HAGAN APRN) Physical Exam: PE: Constitutional: Well developed, well nourished, no acute distress, non-toxic appearance. 30-year-old female in no apparent distress. HENT: Normocephalic, atraumatic. Oropharynx moist, pink, no drooling, no trismus, no deep tissue infectious process appreciated, bilateral TMs within normal limits. No lymphadenopathy of the head or neck appreciated. Eyes: Conjunctiva normal, no discharge. Neck: Normal range of motion, no stridor. No nuchal rigidity, no meningismus signs. Cardiovascular: No cyanosis appreciated, distal cap refill less than 2 seconds. Lungs & Thorax: Patient is in no respiratory distress, no audible adventitious lung sounds appreciated. Abdomen: Nontender, no abnormalities noted. Skin: Warm, dry, no erythema, no rash. Back: No tenderness, no deformities. Extremities: No tenderness, no cyanosis, no clubbing, ROM intact, no edema. Neurologic: Alert and oriented X 3, normal motor function, normal sensory function, no focal deficits noted. Psychologic: Affect normal, judgement normal, mood normal. (LIZZ HAGAN APRN) Current Patient Data: Vital Signs: Vital Signs Date Time Temp Pulse Resp B/P (MAP) Pulse Ox O2 Delivery O2 Flow Rate FiO2 11/06/20 19:55 94.4 125 18 129/91 (104) 100 Room Air 94.4 (LIZZ HAGAN APRN) EKG: EKG: [] (LIZZ HAGAN APRN) Radiology/Procedures: Radiology/Procedures: [] (LIZZ HAGAN APRN) Course & Med Decision Making: Course & Med Decision Making Pertinent Labs and Imaging studies reviewed. (See chart for details) 30-year-old female presents emergency department concerning migraine headache for 2 weeks. Patient physical examination unremarkable, will give to hydrocodone tablets along with 1 tablet of ODT ondansetron and discharged home. Patient is amenable to ED planning. Discussed with the patient all findings and diagnostic testing as well as the need to follow-up with their primary care provider for further evaluation and treatment or return to the ED if any new or worsening symptoms. Strict return precautions were also discussed at length, the patient voiced understanding and agreement with the discharge planning. The patient was nontoxic in appearance, in no apparent distress, and hemodynamically stable at the time of disposition. (LIZZ HAGAN APRN) Course & Med Decision Making I was the Attending physician on the above date of service of this patient. This patient was evaluated, examined, treated, and dispositioned from the emergency department by the mid-level practitioner. Although I was working at the time , no assistance was requested. Electronically signed, Phillip Torre DO (PHILLIP TORRE DO) Lawrence Disclaimer: Lawrence Disclaimer: This electronic medical record was generated, in whole or in part, using a voice recognition dictation system. (LIZZ HAGAN APRN) Departure Departure Impression: Primary Impression: Headache Qualified Codes: R51.9 - Headache, unspecified Disposition: HOME / SELF CARE / HOMELESS Condition: GOOD Referrals: UNKNOWN PCP NAME (PCP) Patient Instructions: Headache, FAQs Additional Instructions: You were seen today in the emergency department for headache. You were given pain medication in the ED today., As we discussed please follow-up with your primary care physician tomorrow and let them know that your headache regimen medications at home are not working so they can consider adjusting your medications. Please keep your appointment with your neurologist here in 2 weeks. Thank you for visiting our Emergency Department. It was a pleasure taking care of you today in the emergency department and we appreciate you trusting us with your care. If any additional problems come up don't hesitate to return to visit us. Please follow up with your primary care provider so they can plan additional care if needed and know about the problem that you had. If symptoms worsen come back to the Emergency Department. Any concerning symptoms that start such as chest pain, shortness of air, weakness or numbness on one side of the body, running high fevers or any other concerning symptoms return to the ER. Scripts Ondansetron (ONDANSETRON ODT) 4 Mg Tab.rapdis 1 TAB PO PRN Q6-8HRS for nausea, #16 TAB 0 Refills Prov: LIZZ HAGAN APRN 11/06/20 LIZZ HAGAN APRN Nov 06, 2020 22:00 PHILLIP TORRE DO Nov 07, 2020 01:07
== END 2020-11-06 22:31 | disposition home or self-care (01) ==
LOC: ER 19:43
DX: G43.909 Migraine, unspecified, not intractable, without status migrainosus (principal); F31.9 Bipolar disorder, unspecified; F17.200 Nicotine dependence, unspecified, uncomplicated; Z88.6 Allergy status to analgesic agent
CPT/HCPCS: 99283

== ENCOUNTER 2020-11-15 10:25 | Emergency (ER) | payer MEDICAID ==
[~2020-11-15] VITALS: Ht 180.3 cm; Wt 81.3 kg
[~2020-11-15 10:25] MED LIST changes: +ONDA4TAB12 PO
[2020-11-15] MEDS ORDERED: diphenhydrAMINE 50 MG/ML VIAL IVP ONE (11:00)
[2020-11-15] MEDS ORDERED: IV NORMAL SALINE 1000ML BAG 1,000 ML IV ONE (11:00)
[2020-11-15] MEDS ORDERED: KETOROLAC 15 MG/ML VIAL. IVP ONE (11:00)
[2020-11-15] MEDS ORDERED: METOCLOPRAMIDE HCL 10 MG/2 ML VIAL. IVP ONE (11:00)
[2020-11-15] MEDS ORDERED: DEXAMETHASONE SOD PHOS 4 MG/ML VIAL IVP ONE (11:00)
--- NOTE | 2020-11-15 11:08 | PHYS DOC ---
Past Medical History Past Medical History: Anxiety, Bipolar, Depression, Endometriosis, Other Additional Past Medical Histor: factor 5,MOOD STABILIZER Past Surgical History: Other Additional Past Surgical Histo: knee, cyst removal Smoking Status: Current Every Day Smoker Alcohol Use: None General Adult EDM: Chief Complaint: HEADACHE HPI: HPI: Patient is a 30 year old female who presents with complaints of headache, which have been ongoing for over 3 weeks. Headaches have been mostly daily, are progressive in nature, and are no worse today. She has already seen her primary care physician, approximately 2 weeks ago. She received an IM dose of Toradol in the office, and she was prescribed 9 tablets of sumatriptan. She has taken those as prescribed, reportedly with no relief. She has also been referred to outpatient neurology, with whom she has an appointment in 2 weeks. She denies any thunderclap headache. She denies fall, head injury, dizziness, vertigo, vision loss, motor weakness, numbness, chest pain, dyspnea, palpitations, abdominal pain. She reports nausea, without vomiting. She admits that she has had ongoing headache symptoms for many years. She has previously seen physicians at [facility]. She has reportedly never been formally diagnosed with any specific type of headache. She left work today, because she reports that she felt like she was "stuttering." She reports that her boss "made" her come to the emergency department. She is requesting a work release for the rest of the day. Currently, she denies any speech difficulty. She is ambulatory on arrival, manifesting no current evidence of distress. She has been seen here previously for similar headache symptoms. She has previously been given IV opioid medication and oral opioid medication at other facilities. She is not specifically requesting these at this time. Review of Systems: Review of Systems: Constitutional: Denies fever or chills. [] Eyes: Denies change in visual acuity. She admits to mild and chronic photophobia associated with her headache symptoms. HENT: Reports chronic and unchanged nasal congestion. Denies sore throat. Denies epistaxis. Respiratory: Denies cough or shortness of breath. [] Cardiovascular: Denies chest pain or edema. [] GI: Denies abdominal pain. Denies vomiting, but does report nausea. : Denies urinary symptoms. Musculoskeletal: Denies back pain or joint pain. [] Integument: Denies rash. [] Neurologic: She admits to headaches. Denies numbness, denies motor weakness. Denies syncope. Denies vertigo or dizziness. Lymphatic: Denies swollen glands. [] Psychiatric: Admits to chronic depression and anxiety symptoms, which are unchanged. Denies SI or HI today. Heart Score: C/O Chest Pain: No Risk Factors: Risk Factors: DM, Current or recent (<one month) smoker, HTN, HLP, family history of CAD, obesity. Risk Scores: Score 0 - 3: 2.5% MACE over next 6 weeks - Discharge Home Score 4 - 6: 20.3% MACE over next 6 weeks - Admit for Clinical Observation Score 7 - 10: 72.7% MACE over next 6 weeks - Early Invasive Strategies Allergies: Allergies: Allergies Coded Allergies Type Severity Reaction Last Updated Verified tramadol Allergy Intermediate hives 03/10/20 Yes Physical Exam: PE: Constitutional: Well developed, well nourished, no acute distress, non-toxic appearance. [] HENT: Normocephalic, atraumatic, bilateral external ears normal, TMs are clear bilaterally, oropharynx is clear, without exudate or erythema, mucous membranes are moist, no oral exudates, nose normal. [] Eyes: PERRLA, EOMI, conjunctiva normal, no discharge. [] Neck: Normal range of motion, no tenderness, supple, no meningismus. Cardiovascular: Tachycardic, low 100s, regular, +2 radial and dorsalis pedis pulses bilaterally. Lungs & Thorax: Bilateral breath sounds clear to auscultation [] Abdomen: Bowel sounds normal, soft, no tenderness, no masses, no pulsatile masses. [] Skin: Warm, dry, no erythema, no rash. [] Back: No tenderness, no CVA tenderness. [] Extremities: No tenderness, no cyanosis, no clubbing, ROM intact, no edema. [] Neurologic: Alert and oriented X 3, normal motor function, normal sensory function, no focal deficits noted. Ambulatory with a steady gait. Cranial nerves II through XII grossly intact. 5 out of 5 motor strength in all four extremities. No dysmetria. No limb ataxia. Speech is clear and fluent. Psychologic: Anxious, but cooperative. Current Patient Data: Vital Signs: Vital Signs Date Time Temp Pulse Resp B/P (MAP) Pulse Ox O2 Delivery O2 Flow Rate FiO2 11/15/20 10:32 98.4 107 16 131/96 (108) 98 Room Air 98.4 EKG: EKG: [][facility] [address] [place] [address] IMAGING REPORT Signed PATIENT: GABINO MUNOZ FACCOUNT: [id number] : 1990 LOCATION: ER AGE: 30 SEX: F EXAM STATUS: REG ER ORD. PHYSICIAN: DYLAN ALNDAVERDE DO REASON: Headache, migraine. Pt refused to remove piercing PROCEDURE: CT HEAD WO CONTRAST CT HEAD WITHOUT CONTRAST 11/15/2020 11:22 AM Indication: Reason: Headache, migraine. Comparison: None Procedure: Multidetector CT imaging of the head was performed without the administration of contrast. Findings: There is no evidence of acute intracranial hemorrhage. There is no evidence of acute territorial infarction. Please note that CT is limited for evaluation of acute ischemia. No mass effect or midline shift is identified . The ventricles and basilar cisterns have an appropriate appearance. No abnormal extra-axial fluid collections are seen. No acute osseous changes are identified. Impression: No evidence of acute intracranial abnormality CT DOSING PQRS STATEMENT: One or more of the following individualized dose reduction techniques were utilized for this examination: 1. Automated exposure control 2. Adjustment of the mA and/or kV according to patient size 3. Use of iterative reconstruction technique Electronically signed by: Marcelino Castrejon MD (11/15/2020 11:37 AM) [id number] DICTATED and SIGNED BY: MARCELINO CASTREJON MD DATE: 11/15/20 [id number] Radiology/Procedures: Radiology/Procedures: [] Course & Med Decision Making: Course & Med Decision Making Pertinent Labs and Imaging studies reviewed. (See chart for details) The patient received a liter of IV normal saline. She was also given IV Decad hemanth, IV Reglan, IV Benadryl, IV Toradol. She is resting comfortably. Tachycardia is resolved. She is manifesting no evidence of distress. She has a nonfocal neurologic exam. CT head is unremarkable for any acute disease process. No red flag pains or symptoms reported or noted. I have discussed all of the findings, differential diagnosis and plan of care with the patient. I instructed her that she is to keep her appointment with her neurologist in 2 weeks, as well as follow-up with her primary care physician. She reports to me that she has antiemetic medications prescribed to her by her PCP, at home. She declines any further prescription for disposition home at this time. There is no current indication for any further invasive exams, imaging or admission. I have discussed strict return precautions with her. She verbalized understanding. She is stable for discharge. Dragon Disclaimer: Dragon Disclaimer: This electronic medical record was generated, in whole or in part, using a voice recognition dictation system. Departure Departure Impression: Primary Impression: Headache Disposition: 01 HOME / SELF CARE / HOMELESS Condition: GOOD Referrals: NAZARIO MEHTA (PCP) Patient Instructions: General Headache Without Cause Additional Instructions: Return for fever of 100.4 or higher, for uncontrolled vomiting with dehydration, if you are actutely injured or for any other concerns. Follow up with your primary care physician and your neurologist as scheduled. DYLAN LANDAVERDE DO Nov 15, 2020 11:08
[2020-11-15 11:22] LABS: BILIRUBIN,URINE NEGATIVE (NEG); CLARITY,URINE CLEAR; COLOR,URINE YELLOW; NITRITE,URINE NEGATIVE (NEG); PROTEIN,URINE NEGATIVE (NEG-TRACE); UROBILINOGEN,URINE 0.2 mg/dL (0.2 mg/dL)
[2020-11-15 11:22] LABS: BASO # 0.1 x10^3/uL (0.0-0.2); BASO % 1 % (0-3); EOS # 0.1 x10^3/uL (0.0-0.7); EOS % 1 % (0-3); HEMATOCRIT 38.3 % (36.0-47.0); HEMOGLOBIN 13.1 g/dL (12.0-15.5); LYMPH # 2.2 x10^3/uL (1.0-4.8); LYMPH % 18 % (24-48); MEAN CORPUSCULAR HEMOGLOBIN 31 pg (25-35); MEAN CORPUSCULAR HGB CONC 34 g/dL (31-37); MEAN CORPUSCULAR VOLUME 91 fL (79-100); MONO # 0.8 x10^3/uL (0.0-1.1); MONO % 7 % (0-9); NEUT # 8.8 x10^3/uL (1.8-7.7); NEUT % 74 % (31-73); PLATELET COUNT 336 x10^3/uL (140-400); RED BLOOD COUNT 4.23 x10^6/uL (3.50-5.40); RED CELL DISTRIBUTION WIDTH 12.7 % (11.5-14.5); WHITE BLOOD COUNT 11.9 x10^3/uL (4.0-11.0)
[2020-11-15 11:33] LABS: CREATININE 0.7 mg/dL (0.6-1.0); GFR 98.9; POTASSIUM 3.6 mmol/L (3.5-5.1)
--- NOTE | 2020-11-15 11:39 | RAD ---
CT HEAD WITHOUT CONTRAST 11/15/2020 11:22 AM Indication: Reason: Headache, migraine. Comparison: None Procedure: Multidetector CT imaging of the head was performed without the administration of contrast. Findings: There is no evidence of acute intracranial hemorrhage. There is no evidence of acute territ orial infarction. Please note that CT is limited for evaluation of acute ischemia. No mass effect or midline shift is identified . The ventricles and basilar cisterns have an appropriate appearance. No abnormal extra-axial fluid collections are seen. No acute osseous changes are identified. Impression: No evidence of acute intracranial abnormality CT DOSING PQRS STATEMENT: One or more of the following individualized dose reduction techniques were utilized for this examinat ion: 1. Automated exposure control 2. Adjustment of the mA and/or kV according to patient size 3. Use of iterative reconstruction technique Electronically signed by: Marcelino Del Cid MD (11/15/2020 11:37 AM) [id number]
[2020-11-15 11:51] LABS: BACTERIA,URINE FEW /HPF (0-FEW); RBC,URINE RARE /HPF (0-2); WBC,URINE OCC /HPF (0-4)
[2020-11-15 12:01] VITALS: BP 111/66
== END 2020-11-15 12:32 | disposition home or self-care (01) ==
LOC: ER 10:25
DX: R51.9 Headache, unspecified (principal); F41.9 Anxiety disorder, unspecified; F31.9 Bipolar disorder, unspecified; F17.200 Nicotine dependence, unspecified, uncomplicated; Z88.6 Allergy status to analgesic agent
CPT/HCPCS: 36415; 70450; 80048; 81001; 81025; 85025; 96361; 96374; 96375; 99284; J1100; J1200; J1885; J2765; J7030

== ENCOUNTER 2020-11-28 16:58 | Emergency (ER) | payer MEDICAID ==
[~2020-11-28] VITALS: Ht 180.3 cm; Wt 84.1 kg
[2020-11-28] MEDS ORDERED: PROCHLORPERAZINE 10 MG/2 ML VIAL. IV ONE (18:30)
[2020-11-28] MEDS ORDERED: diphenhydrAMINE 50 MG/ML VIAL IVP ONE (18:30)
[2020-11-28] MEDS ORDERED: KETOROLAC 30 MG/ML VIAL. IVP ONE (18:30)
[2020-11-28] MEDS ORDERED: DEXAMETHASONE SOD PHOS 20 MG/5 ML VIAL. IV ONE (18:30)
[2020-11-28] MEDS ORDERED: IV NORMAL SALINE 1000ML BAG 1,000 ML IV ONE (18:30)
--- NOTE | 2020-11-28 19:57 | PHYS DOC ---
Past Medical History Past Medical History: Anxiety, Bipolar, Depression, Endometriosis, Migraines, Other Additional Past Medical Histor: factor 5,MOOD STABILIZER Past Surgical History: Other Additional Past Surgical Histo: knee, cyst removal Smoking Status: Current Every Day Smoker Alcohol Use: None General Adult EDM: Chief Complaint: HEADACHE HPI: HPI: Patient is a 30 year old with a history of migraine headaches presenting today complaining of a migraine headache for the last 1 month. Patient describes the pain as throbbing and constant. She states the pain is concentrated on the forehead, patient reports photophobia, reports occasional nausea, denies any vom iting. States this pain is consistent with her normal migraines. She states she follows up with a neurologist. She states she was seen 2 weeks ago and was started on Reyvow and butalbital with aspirin patient states the medicine is not helping. She states she has had a CT of the head. Which was negative, she states She is waiting for insurance approval for Botox injections and MRI of the brain. Denies this being the worst headache in her life Review of Systems: Review of Systems: Constitutional: Denies fever or chills. [] Eyes: Denies change in visual acuity. [] HENT: Denies nasal congestion or sore throat. [] Respiratory: Denies cough or shortness of breath. [] Cardiovascular: Denies chest pain or edema. [] GI: Denies abdominal pain, nausea, vomiting, bloody stools or diarrhea. [] : Denies dysuria. [] Musculoskeletal: Denies back pain or joint pain. [] Integument: Denies rash. [] Neurologic: Reports migraine headaches denies focal weakness or sensory changes.\ Psychiatric: Denies depression or anxiety. [] Heart Score: C/O Chest Pain: N/A Risk Factors: Risk Factors: DM, Current or recent (<one month) smoker, HTN, HLP, family history of CAD, obesity. Risk Scores: Score 0 - 3: 2.5% MACE over next 6 weeks - Discharge Home Score 4 - 6: 20.3% MACE over next 6 weeks - Admit for Clinical Observation Score 7 - 10: 72.7% MACE over next 6 weeks - Early Invasive Strategies Current Medications: Current Medications Medications (Trade) Dose Ordered Sig/Lianet Start Time Stop Time Status Last Admin Dose Admin Dexamethasone Sodium Phosphate (Decadron) 10 mg 1X ONCE 10/18/21 18:30 11/28/20 18:31 DC 11/28/20 19:08 10 MG Diphenhydramine HCl (Benadryl) 25 mg 1X ONCE 11/28/20 18:30 11/28/20 18:31 DC 11/28/20 19:04 25 MG Ketorolac Tromethamine (Toradol 30mg Vial) 30 mg 1X ONCE 11/28/20 18:30 11/28/20 18:31 DC 11/28/20 19:06 30 MG Prochlorperazine Edisylate (Compazine) 10 mg 1X ONCE 11/28/20 18:30 11/28/20 18:31 DC 11/28/20 19:09 10 MG Sodium Chloride 1,000 ml @ 1,000 mls/hr 1X ONCE 11/28/20 18:30 11/28/20 19:29 DC 11/28/20 19:01 1,000 MLS/HR Allergies: Allergies: Allergies Coded Allergies Type Severity Reaction Last Updated Verified tramadol Allergy Intermediate hives 03/10/20 Yes Physical Exam: PE: Constitutional: Well developed, well nourished, no acute distress, non-toxic appearance. [] HENT: Normocephalic, atraumatic, bilateral external ears normal, oropharynx moist, no oral exudates, nose normal. [] Eyes: PERRLA, EOMI, conjunctiva normal, no discharge. [] Neck: Normal range of motion, no tenderness, supple, no stridor. [] Cardiovascular:Heart rate regular rhythm, no murmur [] Lungs & Thorax: Bilateral breath sounds clear to auscultation [] Abdomen: Bowel sounds normal, soft, no tenderness, no masses, no pulsatile masses. [] Skin: Warm, dry, no erythema, no rash. [] Back: No tenderness, no CVA tenderness. [] Extremities: No tenderness, no cyanosis, no clubbing, ROM intact, no edema. [] Neurologic: Alert and oriented X 3, normal motor function, normal sensory function, no focal deficits noted. Cranial nerves II through XII intact Psychologic: Affect normal, judgement normal, mood normal. [] Current Patient Data: Vital Signs: Vital Signs Date Time Temp Pulse Resp B/P (MAP) Pulse Ox O2 Delivery O2 Flow Rate FiO2 11/28/20 18:03 98.5 88 18 119/74 (89) 100 Room Air 98.5 EKG: EKG: [] Radiology/Procedures: Radiology/Procedures: [] Course & Med Decision Making: Course & Med Decision Making Pertinent Labs and Imaging studies reviewed. (See chart for details) This a 30-year-old female patient presented to the ED today complaining of chronic migraine headaches. Patient was in the ED on November 15, 2020 for the same complaint. She followed up with her own neurologist 2 weeks ago and was put on new medicines Reyvow and butalbital with aspirin. Patient states the medicines are not helping. Denies this being the worst headache in her life. She had a CT of the head done on November 15, 2020 which was negative. She states she is waiting for insurance approval to get Botox injections for her migraines. I offered patient migraine cocktail, she spent an incredible amount of time refusing the medicine stating its not going to do her any good to her. Informed patient her migraine headaches are chronic I recommend she follows up with a neurologist. She was given 1 L of IV fluid, Decadron Compazine Benadryl and Toradol and she was discharged to home. Dragon Disclaimer: [employer] Disclaimer: This electronic medical record was generated, in whole or in part, using a voice recognition dictation system. Departure Departure Impression: Primary Impression: Migraine headache Qualified Codes: G43.909 - Migraine, unspecified, not intractable, without status migrainosus Disposition: HOME / SELF CARE / HOMELESS Condition: STABLE Referrals: NAZARIO MEHTA (PCP) follow up with your doctor as soon as possible Patient Instructions: Migraine Headache Additional Instructions: You were evaluated in the emergency room for chronic migraine headaches. We highly recommend you follow-up with your neurologist as soon as you can. SABAS [employer] Nov 28, 2020 19:57
[2020-11-28 20:00] VITALS: BP 119/74
== END 2020-11-28 20:00 | disposition home or self-care (01) ==
LOC: ER 16:58
DX: G43.909 Migraine, unspecified, not intractable, without status migrainosus (principal); F31.9 Bipolar disorder, unspecified; F17.200 Nicotine dependence, unspecified, uncomplicated; Z88.6 Allergy status to analgesic agent
CPT/HCPCS: 96361; 96374; 96375; 99284; J0780; J1100; J1200; J1885; J7030

== ENCOUNTER → 2020-12-06 | Outpatient (CLI) | payer OTHER, MEDICAID ==
[2020-11-28 20:00] VITALS: BP 119/74
--- NOTE | 2020-12-06 10:08 | RAD ---
EXAM: Brain MRI without contrast. HISTORY: Migraine. TECHNIQUE: Multiplanar, multisequence magnetic resonance imaging of the brain was performed without c ontrast. COMPARISON: None. FINDINGS: There is no restricted diffusion to suggest acute or subacute infarction. There is no susce ptibility effect to suggest hemorrhage. There is no mass effect or midline shift. There is no hydroce phalus. No suspicious white matter lesion is seen. The orbits, paranasal sinuses mastoid air cells ar e unremarkable. There are normal flow voids within the cerebral vessels. There is no suspicious kamala rial lesion. IMPRESSION: No acute intracranial finding. Electronically signed by: Nuha Lara MD (12/06/2020 10:05 AM) [id number]
== END ==
LOC: MRI 09:15
PROVIDERS: ATTEND Nurse Practitioner Family
DX: G43.711 Chronic migraine without aura, intractable, with status migrainosus (principal)
CPT/HCPCS: 70551

== ENCOUNTER 2021-06-15 08:53 | Emergency (ER) | payer OTHER, MEDICAID ==
[~2021-06-15] VITALS: Ht 180.3 cm; Wt 79.5 kg
--- NOTE | 2021-06-15 09:52 | PHYS DOC ---
Past Medical History Past Medical History: Anxiety, Bipolar, Depression, Endometriosis, Hypert ension, Migraines, Other Additional Past Medical Histor: factor 5,MOOD STABILIZER, COVID, endometriosis Past Surgical History: Other Additional Past Surgical Histo: knee, cyst removal Smoking Status: Current Every Day Smoker Alcohol Use: None Drug Use: None General Adult EDM: Chief Complaint: HYPERTENSION HPI: HPI: Patient is a 31-year-old female that presents today with dizziness. Patient states that starting around 7:00 this morning she started having bouts of dizziness, she states she took her blood pressure her blood pressure at the time was 140s over 90s which was unusually high for her, she said that she is also had some nausea related to this, she also states that she had some ear popping along with ringing. Patient states that she has a past medical history of hypertension which she sees Araseli Ashby in [facility], she also has a history of migraine headaches for which she sees Botox injections for her on an every 3-month basis in the neurology office here at [facility] and she has mental health issues which she sees [facility] for on a regular basis. Patient states that she has not had any changes over the last couple of days and that normally her migraines are not triggered by weather related or menstrual related changes. Patient states her triggers for her migraines are stress. Patient states that after she took her initial blood pressure she took her metoprolol, she said she rechecked her blood pressure about 45 minutes later and she states that her blood pressure was 160s over 90s and then she decided to come here to the emergency department. Patient denies chest pain, she states she has had some short of breath but she does smoke on a regular basis, she also denies fever chills. Review of Systems: Review of Systems: Constitutional: Denies fever or chills. [] Eyes: Denies change in visual acuity. [] HENT: Dry mouth denies nasal congestion or sore throat. [] Respiratory: shortness of breath. [] Cardiovascular: Denies chest pain or edema. [] GI: Denies abdominal pain, nausea, vomiting, bloody stools or diarrhea. [] : Denies dysuria. [] Musculoskeletal: Denies back pain or joint pain. [] Integument: Denies rash. [] Neurologic: Dizziness denies headache, focal weakness or sensory changes. [] Endocrine: Denies polyuria or polydipsia. [] Lymphatic: Denies swollen glands. [] Psychiatric: Denies depression or anxiety. [] Heart Score: C/O Chest Pain: No Risk Factors: Risk Factors: DM, Current or recent (<one month) smoker, HTN, HLP, family history of CAD, obesity. Risk Scores: Score 0 - 3: 2.5% MACE over next 6 weeks - Discharge Home Score 4 - 6: 20.3% MACE over next 6 weeks - Admit for Clinical Observation Score 7 - 10: 72.7% MACE over next 6 weeks - Early Invasive Strategies Allergies: Allergies: Allergies Coded Allergies Type Severity Reaction Last Updated Verified tramadol Allergy Intermediate hives 06/15/21 Yes Physical Exam: PE: Constitutional: Well developed, well nourished, no acute distress, non-toxic appearance. [] HENT: Normocephalic, atraumatic, bilateral external ears normal, oropharynx moist, no oral exudates, nose normal. [] Eyes: PERRLA, EOMI, conjunctiva normal, no discharge. [] Neck: Normal range of motion, no tenderness, supple, no stridor. [] Cardiovascular:Heart rate regular rhythm, no murmur [] Lungs & Thorax: Bilateral breath sounds scattered wheezes Abdomen: Bowel sounds normal, soft, no tenderness, no masses, no pulsatile masses. [] Skin: Warm, dry, no erythema, no rash. [] Back: No tenderness, no CVA tenderness. [] Extremities: No tenderness, no cyanosis, no clubbing, ROM intact, no edema. [] Neurologic: Alert and oriented X 3, normal motor function, normal sensory function, no focal deficits noted. [] Psychologic: Affect normal, judgement normal, mood anxious. [] Current Patient Data: Labs: Laboratory Tests Test 06/15/21 09:20 06/15/21 09:30 06/15/21 09:51 White Blood Count 10.8 x10^3/uL Red Blood Count 4.16 x10^6/uL Hemoglobin 12.8 g/dL Hematocrit 37.6 % Mean Corpuscular Volume 91 fL Mean Corpuscular Hemoglobin 31 pg Mean Corpuscular Hemoglobin Concent 34 g/dL Red Cell Distribution Width 12.6 % Platelet Count 308 x10^3/uL Neutrophils (%) (Auto) 59 % Lymphocytes (%) (Auto) 31 % Monocytes (%) (Auto) 8 % Eosinophils (%) (Auto) 2 % Basophils (%) (Auto) 1 % Neutrophils # (Auto) 6.4 x10^3/uL Lymphocytes # (Auto) 3.3 x10^3/uL Monocytes # (Auto) 0.8 x10^3/uL Eosinophils # (Auto) 0.3 x10^3/uL Basophils # (Auto) 0.1 x10^3/uL Sodium Level 136 mmol/L Potassium Level 3.3 mmol/L Chloride Level 101 mmol/L Carbon Dioxide Level 25 mmol/L Anion Gap 10 Blood Urea Nitrogen 12 mg/dL Creatinine 0.8 mg/dL Estimated GFR (Cockcroft-Gault) 84.2 BUN/Creatinine Ratio 15 Glucose Level 108 mg/dL Calcium Level 8.9 mg/dL Total Bilirubin 0.3 mg/dL Aspartate Amino Transf (AST/SGOT) 18 U/L Alanine Aminotransferase (ALT/SGPT) 20 U/L Alkaline Phosphatase 74 U/L Troponin I High Sensitivity 4 ng/L Total Protein 7.2 g/dL Albumin 3.7 g/dL Albumin/Globulin Ratio 1.1 Urine Collection Type Unknown Urine Color Yellow Urine Clarity Clear Urine pH 5.0 Urine Specific Reform 1.010 Urine Protein Negative mg/dL Urine Glucose (UA) Negative mg/dL Urine Ketones (Stick) Negative mg/dL Urine Blood Trace Urine Nitrite Positive Urine Bilirubin Negative Urine Urobilinogen Dipstick 0.2 mg/dL Urine Leukocyte Esterase Negative Urine RBC Rare /HPF Urine WBC Rare /HPF Urine Bacteria 0 /HPF Bedside Urine HCG, Qualitative Hcg negative Current Medications Medications (Trade) Dose Ordered Sig/Lianet Route PRN Reason Start Time Stop Time Status Last Admin Dose Admin Meclizine HCl (Antivert) 25 mg 1X ONCE PO 06/15/21 10:00 06/15/21 10:01 DC Sodium Chloride 1,000 ml @ 999 mls/hr 1X ONCE IV 06/15/21 10:00 06/15/21 11:00 06/15/21 10:29 Ondansetron HCl (Zofran) 4 mg 1X ONCE IVP 06/15/21 10:00 06/15/21 10:01 DC 06/15/21 10:31 Ibuprofen (Motrin) 600 mg 1X ONCE PO 06/15/21 11:00 06/15/21 11:01 UNV Vital Signs: Vital Signs Date Time Temp Pulse Resp B/P (MAP) Pulse Ox O2 Delivery O2 Flow Rate FiO2 06/15/21 11:34 81 20 118/57 (77) 99 Room Air 06/15/21 11:09 75 20 111/59 (76) 100 Room Air 06/15/21 10:34 88 16 127/72 (90) 100 Room Air 06/15/21 09:10 98.9 93 24 143/74 (97) 100 Room Air 98.9 Vital Signs Date Time Temp Pulse Resp B/P (MAP) Pulse Ox O2 Delivery O2 Flow Rate FiO2 06/15/21 09:10 98.9 93 24 143/74 (97) 100 Room Air 98.9 EKG: EKG: [] Radiology/Procedures: Radiology/Procedures: REASON: dizziness PROCEDURE: CT HEAD WO CONTRAST CT HEAD WITHOUT CONTRAST 06/15/2021 9:56 AM Indication: Dizziness Comparison: CT head November 15, 2020 Procedure: Multidetector CT imaging of the head was performed without the ad ministration of contrast. Findings: There is no evidence of acute intracranial hemorrhage. There is no evidence of acute territorial infarction. Please note that CT is limited for evaluation of acute ischemia. No mass effect or midline shift is identified . The ventricles and basilar cisterns have an appropriate appearance. No abnormal extra-axial fluid collections are seen. No acute osseous changes are identified. Impression: No evidence of acute intracranial abnormality CT DOSING PQRS STATEMENT: One or more of the following individualized dose reduction techniques were utilized for this examination: 1. Automated exposure control 2. Adjustment of the mA and/or kV according to patient size 3. Use of iterative reconstruction technique Electronically signed by: Marcelino Del Cid MD (06/15/2021 10:36 AM) [id number] [] REASON: dizziness PROCEDURE: PORTABLE CHEST 1V Single view of the chest. 06/15/2021 10:02 AM Indication: Dizziness: Comparison: None Findings: There is no focal consolidation. There is no pleural effusion or pneumothorax. The cardiomediastinal silhouette and pulmonary vasculature are within normal limits. No acute osseous abnormalities are seen. Impression: No evidence of acute cardiopulmonary process. Electronically signed by: Marcelino Del Cid MD (06/15/2021 10:23 AM) [id number] Course & Med Decision Making: Course & Med Decision Making Pertinent Labs and Imaging studies reviewed. (See chart for details) 1031 patient refused the meclizine, she states that her dizziness has improved that all she wants is an ibuprofen because she has a headache at this time. 1120 reassessment of patient, patient states now that she has a migraine headache she said is a little bit different than the ones in the past but she feels the pain is very similar, she said that she was also being weaned off her lorazepam from her psychiatric physician and she is out of her medications and she thinks that this morning was related to a panic attack due to headache. Patient was offered medications such as Toradol, Compazine, and Benadryl, and IV fluids for her migraine headache she at this time has declined those because she does not want to be drowsy and she states they have never worked in the past. Patient is instructed to follow-up with her primary care physician and neurology here at [facility] as soon as possible for further evaluation and management of her migraine headache. Patient was also informed that she had a urinary tract infection and that she will be treated for that and she should follow-up with her primary care for further evaluation and management of that that that is no better in 5 to 7 days. Patient blood pressure currently is 112/63. Patient denies chest pain or shortness of breath. Dragon Disclaimer: [employer] Disclaimer: This electronic medical record was generated, in whole or in part, using a voice recognition dictation system. Departure Departure Impression: Primary Impression: Migraine headache Qualified Codes: G43.909 - Migraine, unspecified, not intractable, without status migrainosus Disposition: HOME / SELF CARE / HOMELESS Condition: STABLE Referrals: ARASELI ASHBY (PCP) NATHALY AGUIRRE Patient Instructions: Migraine Headache Additional Instructions: Patient is instructed to follow-up with her primary care physician and neurology that is listed in the referral section for further evaluation and management of her migraines and also her urinary tract infection Macrobid 100 mg take 1 tablet twice daily for 7 full days Take your medication as directed for your migraine headaches Follow-up with your mental health team at [facility] for further evaluation of your panic attacks and your anxiety Follow-up with Symone RICHARDS in regards to your high blood pressure Return here to the emergency department should your headache worsen or change in any way, your blood pressure is elevated even with the use of your medications, or you are unable to take any by mouth medications for your headache due to nausea and vomiting. Scripts Nitrofurantoin Monohyd/M-Cryst (MACROBID 100 MG CAPSULE) 100 Mg Capsule 1 CAP PO BID for 7 Days, #14 CAP 0 Refills Prov: HERMAN BALLARD APRN 06/15/21 HERMAN BALLARD APRN June 15, 2021 09:52
[2021-06-15 09:55] LABS: BASO # 0.1 x10^3/uL (0.0-0.2); BASO % 1 % (0-3); EOS # 0.3 x10^3/uL (0.0-0.7); EOS % 2 % (0-3); HEMATOCRIT 37.6 % (36.0-47.0); HEMOGLOBIN 12.8 g/dL (12.0-15.5); LYMPH # 3.3 x10^3/uL (1.0-4.8); LYMPH % 31 % (24-48); MEAN CORPUSCULAR HEMOGLOBIN 31 pg (25-35); MEAN CORPUSCULAR HGB CONC 34 g/dL (31-37); MEAN CORPUSCULAR VOLUME 91 fL (79-100); MONO # 0.8 x10^3/uL (0.0-1.1); MONO % 8 % (0-9); NEUT # 6.4 x10^3/uL (1.8-7.7); NEUT % 59 % (31-73); PLATELET COUNT 308 x10^3/uL (140-400); RED BLOOD COUNT 4.16 x10^6/uL (3.50-5.40); RED CELL DISTRIBUTION WIDTH 12.6 % (11.5-14.5); WHITE BLOOD COUNT 10.8 x10^3/uL (4.0-11.0)
[2021-06-15] MEDS ORDERED: ONDANSETRON PF 4 MG/2 ML VIAL. IVP ONE (10:00)
[2021-06-15] MEDS ORDERED: MECLIZINE HCL 12.5 MG TABLET. PO ONE (10:00)
[2021-06-15] MEDS ORDERED: IV NORMAL SALINE 1000ML BAG 1,000 ML IV ONE (10:00)
[2021-06-15 10:10] LABS: CALCIUM 8.9 mg/dL (8.5-10.1); CREATININE 0.8 mg/dL (0.6-1.0); GFR 84.2; POTASSIUM 3.3 mmol/L (3.5-5.1)
[2021-06-15 10:15] LABS: BILIRUBIN,URINE NEGATIVE (NEG); CLARITY,URINE CLEAR; COLOR,URINE YELLOW; NITRITE,URINE POSITIVE (NEG); PROTEIN,URINE NEGATIVE (NEG-TRACE); UROBILINOGEN,URINE 0.2 mg/dL (0.2 mg/dL)
[2021-06-15 10:16] LABS: BACTERIA,URINE 0 /HPF (0-FEW); RBC,URINE RARE /HPF (0-2); WBC,URINE RARE /HPF (0-4)
[2021-06-15 10:20] LABS: ALBUMIN 3.7 g/dL (3.4-5.0); ALBUMIN/GLOBULIN RATIO 1.1 (1.0-1.7); TOTAL BILIRUBIN 0.3 mg/dL (0.2-1.0); TOTAL PROTEIN 7.2 g/dL (6.4-8.2)
--- NOTE | 2021-06-15 10:26 | RAD ---
Single view of the chest. 06/15/2021 10:02 AM Indication: Dizziness: Comparison: None Findings: There is no focal consolidation. There is no pleural effusion or pneumothorax. The cardiome diastinal silhouette and pulmonary vasculature are within normal limits. No acute osseous abnormaliti es are seen. Impression: No evidence of acute cardiopulmonary process. Electronically signed by: Marcelino Del Cid MD (06/15/2021 10:23 AM) [id number]
--- NOTE | 2021-06-15 10:38 | RAD ---
CT HEAD WITHOUT CONTRAST 06/15/2021 9:56 AM Indication: Dizziness Comparison: CT head November 15, 2020 Procedure: Multidetector CT imaging of the head was performed without the administration of contrast. Findings: There is no evidence of acute intracranial hemorrhage. There is no evidence of acute territ orial infarction. Please note that CT is limited for evaluation of acute ischemia. No mass effect or midline shift is identified . The ventricles and basilar cisterns have an appropriate appearance. No abnormal extra-axial fluid collections are seen. No acute osseous changes are identified. Impression: No evidence of acute intracranial abnormality CT DOSING PQRS STATEMENT: One or more of the following individualized dose reduction techniques were utilized for this examinat ion: 1. Automated exposure control 2. Adjustment of the mA and/or kV according to patient size 3. Use of iterative reconstruction technique Electronically signed by: Marcelino Del Cid MD (06/15/2021 10:36 AM) [id number]
[2021-06-15] MEDS ORDERED: IBUPROFEN 200 MG TABLET. PO ONE (11:00)
[2021-06-15] MEDS ORDERED: NITR100C62 PO (11:29)
[2021-06-15 11:34] VITALS: BP 118/57
== END 2021-06-15 11:38 | disposition home or self-care (01) ==
LOC: ER 08:53
DX: G43.909 Migraine, unspecified, not intractable, without status migrainosus (principal); I10 Essential (primary) hypertension; R42 Dizziness and giddiness; R06.02 Shortness of breath; R11.0 Nausea; F31.9 Bipolar disorder, unspecified; F17.200 Nicotine dependence, unspecified, uncomplicated; Z88.6 Allergy status to analgesic agent
CPT/HCPCS: 36415; 70450; 71045; 80053; 81001; 81025; 84484; 85025; 87086; 96361; 96374; 99285; J2405; J7030